=== PATIENT | male | born 1985 | race Caucasian/White ===

== ENCOUNTER 2024-06-05 22:02 | Emergency (ER) | payer OTHER, SELFPAY ==
[2024-06-05 22:03] VITALS: BP 137/82; PULSE 69; RESP 18; TEMP 36.8; O2SAT 98; BMI 29.0
[2024-06-05] MEDS: Diphth,Pertuss(Acell),Tet Vac 0.5 ML Vial IM (22:27)
--- NOTE | 2024-06-05 22:41 | EX.ED.DYSGE1 ---
HPI History of Present Illness Chief Complaint: Laceration Informant: patient and family Narrative Narrative: Patient is a 39-year-old male with no significant past medical history. He is left-hand dominant. 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 He denies any numbness tingling or weakness associate with laceration but had concerned that it may be closed and secondary to this comes in for evaluation [facility] Medical History (Updated 06/05/24 @ 22:[address] Raymond North, DO) Short gut syndrome Home Medications ?Medication ?Instructions ?Recorded ?Last Taken ?Type No Known/Unobtainable [No Known 11/26/15 Unknown History Home Medications] Allergy/AdvReac Type Severity Reaction Status Date / Time No Known Allergies Allergy Verified 06/05/24 22:03 Surgical History (Updated 06/05/24 @ 22:31 by Mariya Ramos) History of brain shunt Social History Smoking Status: Never smoker [facility] ED Constitutional Constitutional ED: Denies chills or fever(s) ENT ENT ED: Denies sore throat Cardiovascular Cardiovascular: Denies chest pain Respiratory/Chest Respiratory/Chest: Denies cough or dyspnea Gastrointestinal Gastrointestinal: Denies abdominal pain, diarrhea, nausea or vomiting Genitourinary Genitourinary ED: Denies dysuria Musculoskeletal Musculoskeletal: Reports other Details: Positive left finger pain Integumentary Reports other Details: Positive left finger laceration Neurologic Neurologic: Denies headache(s), paresthesias or weakness Hematologic/Lymphatic Hematologic/Lymphatic: Denies easy bleeding or easy bruising EXAM Physical Exam Const Vital Signs: 06/05/24 22:03 Temperature 98.3 F Temperature Source Oral Pulse Rate 69 Respiratory Rate 18 Blood Pressure 137/82 H Blood Pressure Mean 100 Pulse Ox 98 Oxygen Delivery Method Room Air Positive well nourished and well developed General Appearance ED: well developed HEENT HEENT Narrative: Normocephalic atraumatic Eyes PERRL and EOMs intact bilaterally Neck supple Resp normal respiratory effort and clear to auscultation bilaterally Cardio regular rate and regular rhythm Extremity Extremity Narrative: Left upper extremity is neurovascularly intact; AIN/PIN are intact and normal. There is a horizontal 1.5 cm laceration that is dermal layer deep to the volar aspect of the left fifth digit over top the midportion of the proximal phalanx. No retained foreign body. No ligamentous or tendon injury Remainder the exam is normal Neuro oriented x3, CN's II-XII intact bilaterally and no sensory deficits noted Sensorium / Orientation: alert Motor Exam: strength 5/5 throughout Psych mental status grossly normal Skin Skin Narrative: Laceration to the left fifth digit as documented above MDM MDM MDM Narrative Medical decision making narrative: Patient arrived to the ER with stable vitals and reported a simple laceration to his left fifth finger. He does not have signs of fracture or dislocation there are no signs of ligamentous or tendon injury or surrounding secondary infection such as cellulitis or abscess so there is no need for further workup. The patient was unsure of his tetanus status and as the laceration was caused by piece of metal this was updated. The wound was closed with Dermabond as documented below and patient is otherwise safe for discharge Patient had the left fifth finger cleaned with chlorhexidine. Manual pressure was then applied to bring the wound edges together with good approximation. The wound was covered with Dermabond and the edges held well. Patient tolerated procedure well without complication History & Record Review Discussion w/independent historian: Patient and Family Discharge Plan Triage Chief Complaint: Laceration ED Provider: Raymond North Dx/Rx/DC Orders Clinical Impression: Laceration of left little finger Instructions: ED Laceration, Extremity: Skin Glue Prescriptions: No Action No Known Home Medications Primary Care Provider: Jayson Gomez Referrals: Jayson Gomez MD [Primary Care Provider] - Print Language: Bangladeshi Disposition Disposition: Home, Self Care
[2024-06-05 22:46] VITALS: BP 137/82; PULSE 69; RESP 18; TEMP 36.8; O2SAT 98
== END 2024-06-05 22:48 | disposition home or self-care (01) ==
PROVIDERS: Emergency Provider Emergency Medicine; PCP Family Medicine; Visit Provider Emergency Medicine
DX: S61.217A Laceration without foreign body of left little finger without damage to nail, initial encounter (principal); W26.8XXA Contact with other sharp object(s), not elsewhere classified, initial encounter; Z23 Encounter for immunization
CPT/HCPCS: 12001; 90715; 99282

== ENCOUNTER 2024-09-14 23:50 | Emergency (ER) | payer MEDICARE, MEDICAID, SELFPAY ==
[2024-09-14 23:51] VITALS: BP 142/99; PULSE 85; RESP 18; TEMP 36.1; O2SAT 97; BMI 28.3
--- NOTE | 2024-09-15 00:21 | CT_ITS ---
PROCEDURE: Noncontrast CT of the cervical spine. 09/15/2024 REASON FOR EXAM: Cervical radiculopathy. History of brain shunt. History of recent left shoulder numbness on Favio, now with right shoulder numbness for 1 day. TECHNIQUE: Contiguous unenhanced axial CT images were obtained through the cervical spine. Sagittal and coronal reformats were created.. One or more dose reduction techniques were used (e.g., Automated exposure control, adjustment of the mA and/or kV according to patient size, use of iterative reconstruction technique COMPARISON: None. RADIATION DOSE SUMMARY: DLP: 481.19 mGycm FINDINGS: Included portions of the skull base and craniocervical junction are intact. Straightening of the normal cervical lordosis may be due to muscle spasm or positioning. No acute fracture or focal subluxation of the cervical spine. Mild/moderate multilevel degenerative disc and facet disease, greatest at the C6-7 level. Central spinal canal detail is limited on this study. The posterior elements appear intact. The ring of C1 is intact. There does not appear to be large focal disc herniation or significant central spinal canal narrowing. No significant bony neural foraminal narrowing. The included upper lungs and central airway are clear. The included posterior fossa structures unremarkable. Cervical soft tissues show no specific abnormality. There appears to be discontinuity of the lower cervical portion of the left-sided shunt catheter, which is not completely included on this examination. No gross cervical mass or adenopathy. CT/Spine Cervical without Contras IMPRESSION: No acute bony abnormality of the cervical spine. Straightening of the normal c ervical lordosis could be due to muscle spasm or positioning. Limited central spinal canal detail. There does not appear to be large focal d isc herniation or significant central spinal canal narrowing. No significant bony neural foraminal narrowing. If there are persi stent symptoms or clinical concern, short-term follow-up MRI evaluation may be considered. There appears to be discontinuity of the shunt involving the left lower cervica l portion. Please refer to same day radiographic shunt series report. Reading Location: [facility]
--- NOTE | 2024-09-15 00:21 | RAD_ITS ---
PROCEDURE: Radiographic shunt series, three views 09/15/2024 REASON FOR EXAM: Bilateral shoulder numbness. TECHNIQUE: A total of 3 radiographs were obtained including the skull/cervical spine, chest, and abdomen. COMPARISON: CT cervical spine from the same day. FINDINGS: The portions of the shunt projecting over the skull and upper portion of the cervical spine is intact. There is discontinuity of the shunt at the level of the mid to lower cervical spine on the left, just above the metallic connector on the chest radiograph. There also appears to be discontinuity of the shunt below the more inferior metallic connector in the upper thorax. Portions of the shunt in the thorax are moderate to heavily calcified. Evaluation of the integrity of the shunt in the mid to lower thorax is limited on this study. The portions of the shunt projecting over the upper abdomen are grossly intact there is a coiled portion of the shunt projecting over the right upper abdomen. No abnormally dilated bowel segments. No focal pneumonia or sizable pleural effusion in the thorax. Cardiomediastinal silhouette appears within normal limits. There is a questionable 2.8 cm mixed density lesion projecting near the upper portion of the left SI joint on image 3. RAD/Shuntogram/Prev Placed Shunt IMPRESSION: There appear to be 2 areas of discontinuity of the shunt. One of these is loca victoria at the mid to lower left cervical soft tissues, above the more superior metallic connector. The 2nd area of discontin uity is below the more inferior metallic connector at the upper left side of the thorax. The integrity of the shunt in the mid to upper chest is not well evaluated. Vi sualized portions of the shunt in the lower thorax and upper abdomen grossly intact. No acute findings in the chest or abdomen. There is a questionable 2.8 cm mixed density osseous lesion projecting near the superior margin of the left SI joint. Recommend short-term follow-up nonemergent CT evaluation. Reading Location: [facility]
--- NOTE | 2024-09-15 01:35 | EX.ED.UPPERE ---
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 He states that he is [id number]. He states that he noticed on Thursday he was having some numbness of the left arm. He states this resolved and then yesterday he had a similar sensation in the right arm. He denies any recent trauma. He states it feels like his arm is asleep. He reports he is still able to move his arms and use it his extremities to complete specific tasks such as writing and typing on his phone. He denies any recent bouts of vomiting or diarrhea or new medication. However as the symptoms happen twice this concerned him and therefore he presents for evaluation [facility] Medical History (Updated 09/15/24 @ 01:[address] Raymond North, DO) Short gut syndrome Home Medications ?Medication ?Instructions ?Recorded ?Last Taken ?Type methocarbamol 500 mg tablet 1,000 mg (2 x 500 mg) PO 4X/DAY 09/15/24 Unknown Rx PRN Muscle pain/spasm #56 tabs Allergy/AdvReac Type Severity Reaction Status Date / Time No Known Allergies Allergy Verified 09/14/24 23:51 Surgical History History of brain shunt Social History Smoking Status: Never smoker ROS ROS ED Constitutional Constitutional ED: Denies chills or fever(s) Eyes Eyes: Denies change in vision ENT ENT ED: Denies sore throat Cardiovascular Cardiovascular: Denies chest pain Respiratory/Chest Respiratory/Chest: Denies cough or dyspnea Gastrointestinal Gastrointestinal: Denies abdominal pain, diarrhea, nausea or vomiting Musculoskeletal Musculoskeletal: Denies back pain or neck pain Integumentary Denies rash Neurologic Neurologic: Reports paresthesias; Denies headache(s) or weakness Hematologic/Lymphatic Hematologic/Lymphatic: Denies easy bleeding or easy bruising EXAM Physical Exam Const Vital Signs: 09/14/24 23:51 Temperature 96.9 F L Temperature Source Temporal Pulse Rate 85 Respiratory Rate 18 Blood Pressure 142/99 H Blood Pressure Mean 113 Pulse Ox 97 Oxygen Delivery Method Room Air Positive well nourished and well developed General Appearance ED: well developed HEENT Reports moist mucous membranes HEENT Narrative: Normocephalic atraumatic Eyes PERRL and EOMs intact bilaterally Neck Neck Narrative: No bony deformity or step-off of the cervical spine no midline tenderness to palpation No nuchal rigidity or meningeal signs Patient does have mild tenderness and spasm to the bilateral paracervical muscle bellies Negative Spurling sign bilaterally Resp normal respiratory effort and clear to auscultation bilaterally Cardio regular rate and regular rhythm Extremity normal to inspection and full ROM Extremity Narrative: Bilateral upper extremities are neurovascularly intact; AIN/PIN are intact and normal All compartments are soft and compressible going against compartment syndrome No asymmetric edema no pitting edema. Neuro oriented x3, CN's II-XII intact bilaterally, moves all extremities, no focal motor deficits and no sensory deficits noted Neuro Narrative: GCS of 15 Cranial nerves II through XII are grossly intact without focal neurologic deficit No pronator drift no dysmetria no truncal ataxia NIH stroke scale score 0 Patient reports numbness in his arms but when the extremities are tested between soft and sharp sensation in multiple dermatomes he is able to differentiate this Sensorium / Orientation: alert Motor Exam: strength 5/5 throughout Psych mental status grossly normal Skin no rashes or lesions noted MDM MDM MDM Narrative Medical decision making narrative: Patient presented to the ER slightly hypertensive otherwise with stable vitals. He reported a paresthesia sensation of his left arm on Thursday and then of his right arm yesterday. By physical exam he does not have compartment syndrome and there are no signs of infection such as cellulitis or abscess. He does not have any physical exam findings to suggest upper extremity DVT. He has normal blood flow going against an arterial occlusion. There is potential that the symptoms are simply related to cervical spasm causing superficial compression of a nervous system but there is also potential for a ruptured disc or spinal stenosis causing nerve impingement. Therefore noncontrast CT of the neck was obtained. This revealed straightening of the cervical lordosis but no obvious other findings. As the patient has a remote history of hydrocephalus as a child and states he cannot murmur the last time he had his shunt evaluated I did elect to perform a shunt series as well. This shows that the shunt has been disconnected but that there are no abnormal areas to suggest fluid buildup or secondary infection. Therefore at this time he is neurovascularly intact he is using both extremities to perform fine motor skills such as typing and writing in his exam does not show signs of venous or arterial occlusion secondary infection or acute neurologic deficit. Therefore do not feel there is need for further evaluation may be treated symptomatically with muscle relaxers and is otherwise safe for discharge History & Record Review Discussion w/independent historian: Patient Radiography Diagnostic Testing: Clinical Impression(s) from Imaging Studies Cervical Spine CT 09/15/24 00:21 IMPRESSION: No acute bony abnormality of the cervical spine. Straightening of the normal cervical lordosis could be due to muscle spasm or positioning. Limited central spinal canal detail. There does not appear to be large focal disc herniation or significant central spinal canal narrowing. No significant bony neural foraminal narrowing. If there are persistent symptoms or clinical concern, short-term follow-up MRI evaluation may be considered. There appears to be discontinuity of the shunt involving the left lower cervical portion. Please refer to same day radiographic shunt series report. Reading Location: [facility] Shuntogram 09/15/24 00:21 IMPRESSION: There appear to be 2 areas of discontinuity of the shunt. One of these is located at the mid to lower left cervical soft tissues, above the more superior metallic connector. The 2nd area of discontinuity is below the more inferior metallic connector at the upper left side of the thorax. The integrity of the shunt in the mid to upper chest is not well evaluated. Visualized portions of the shunt in the lower thorax and upper abdomen grossly intact. No acute findings in the chest or abdomen. There is a questionable 2.8 cm mixed density osseous lesion projecting near the superior margin of the left SI joint. Recommend short-term follow-up nonemergent CT evaluation. Reading Location: [facility] Shunt series as interpreted by the emergency medicine physician appears to show 2 areas of shunt discontinuing however there are no obvious signs of fluid buildup or secondary infection Discharge Plan Triage Chief Complaint: Upper Extremity Injury ED Provider: Raymond North Dx/Rx/DC Orders Clinical Impression: Spasm of cervical paraspinous muscle, History of hydrocephalus as a child Instructions: Cervical Radiculopathy, ED Neck Spasm, No Trauma Prescriptions: New methocarbamol 500 mg tablet 1,000 mg PO 4X/DAY PRN (Reason: Muscle pain/spasm) Qty: 56 0RF Primary Care Provider: Alexander Azevedo NP Referrals: Alexander Azevedo CROZER, CROZER-C [Primary Care Provider] - Activity Restrictions/Additional Instructions: Your exam and imaging indicate that your symptoms are most likely to tight neck muscles causing nerve's compression to your arm. Stretch your neck and use heat and topical medications such as IcyHot or Biofreeze to help with symptoms. Use the prescribed muscle relaxer to help control symptoms as well. Follow-up with your doctor for repeat evaluation and to discuss potential need for orthopedic/neurosurgery referral if symptoms persist. Also your x-ray showed a potential lesion on your sacrum and therefore talk to your family doctor about an outpatient CT scan to further evaluate this. Return to the ER should you have any further concerns Print Language: Singaporean Disposition Disposition: Home, Self Care
[2024-09-15] MEDS: Orphenadrine 100 MG Tablet PO (01:43)
[2024-09-15 01:45] VITALS: BP 139/99; PULSE 81; RESP 18; TEMP 36.1; O2SAT 97
== END 2024-09-15 01:47 | disposition home or self-care (01) ==
PROVIDERS: Emergency Provider Emergency Medicine; PCP Nurse Practitioner Primary Care; Visit Provider Emergency Medicine
DX: M62.838 Other muscle spasm (principal); R20.2 Paresthesia of skin; R20.0 Anesthesia of skin; Z98.2 Presence of cerebrospinal fluid drainage device
CPT/HCPCS: 72125; 75809; 99282